=== PATIENT | female | born 1985 | race Caucasian/White ===

== ENCOUNTER → 2020-09-14 08:43 | Outpatient (CLI) | payer OTHER, MEDICAID, SELFPAY ==
[2020-09-12 11:32] VITALS: BMI 21.3
--- NOTE | 2020-09-14 08:46 | US_ITS ---
STUDY: ULTRASOUND BREAST - RIGHT REASON FOR EXAM: Female, 34 years old. Abnormal screening mammogram. TECHNIQUE: Axial and longitudinal images of the RIGHT breast were performed with a high resolution ultrasound transducer. # OF IMAGES: 22 COMPARISON: Comparison is made with prior mammogram done earlier today. FINDINGS: RIGHT Breast: The palpable abnormality corresponds to a 1.5 cm x 2 cm x 0.8 cm hypoechoic well-defined solid nodule at the 12 o''clock position of the breast at 6 cm from nipple. This most likely represents a fibroadenoma. Tissue diagnosis is recommended. US/Breast Limited Unilateral IMPRESSION: The palpable abnormality corresponds to a 1.5 cm x 2 cm x 0.8 cm well-defined hypoechoic solid nodule at the 12 o''clock position of the breast at 6 cm from the nipple. Biopsy recommended. ASSESSMENT CATEGORY: BIRADS Category 4: Suspicious - Biopsy Should Be Considered. A letter regarding these results will be sent to the patient by the facility within 30 days. Electronically Signed: Giorgi Campa MD at 10:34 EST , Service support ,
--- NOTE | 2020-09-14 08:46 | BI_ITS ---
MAMMOGRAPHY - BILATERAL DIAGNOSTIC REASON FOR EXAM: Female, 34 years old. 2 week history of right breast lump. PERTINENT HISTORY: Non-contributory. TECHNIQUE: Digital bilateral breast davy (3D mammographic acquisition) in the CC and MLO projections. 2-D mediolateral oblique (MLO) and craniocaudad (CC) views of both breasts were obtained. CAD: Full Field Digital Mammography with Computer Added Detection was performed. COMPARISON: None. Baseline examination. FINDINGS: Breast Composition: The breasts are extremely dense, which lowers the sensitivity of mammography. The palpable abnormality corresponds to a 1.7 cm x 1.5 cm well-defined nodule in the upper central portion of the right breast. There is also evidence of a 1.5 cm x 1.4 cm retroareolar nodule of the right breast. Correlation with ultrasound is recommended. No other significant abnormalities are identified. BI/DIAG MAMM W/CAD, BILAT IMPRESSION: Nodular densities in the right breast as described. Correlation with ultrasound is recommended. ASSESSMENT CATEGORY: BIRADS Category 0: Incomplete. Need additional imaging evaluation. A letter regarding these results will be sent to the patient by the facility within 30 days. Approximately 10% of breast cancers are not detected by mammography. A normal mammogram should not delay biopsy of a clinically suspicious abnormality. Electronically Signed: Giorgi Campa MD at 10:29 EST , Service support ,
== END ==
PROVIDERS: PCP Internal Medicine; Referring Provider Nurse Practitioner Women's Health; Visit Provider Nurse Practitioner Women's Health
DX: N63.10 Unspecified lump in the right breast, unspecified quadrant (principal)
CPT/HCPCS: 76642; 77062; 77066; G0279

== ENCOUNTER → 2020-09-18 15:26 | Outpatient (CLI) | payer OTHER, MEDICAID, SELFPAY ==
[2020-09-18 13:39] VITALS: BMI 20.9
--- NOTE | 2020-09-18 14:00 | BRBX_PTH ---
PATIENT: LOLITA CASTILLO [facility]: [facility] U#:[id number] AGE/SX: 39/F ROOM: RE09/18/[address]: Dr. Diana Brice MD : 1985 BED: DIS: SPEC #: [id number] RECD: 09/18/20 15:13 STATUS: KIA REQ #: [id number] JANA: 09/18/20 14:[address]: Diana Brice DEPT: SURGICAL PATHOLOGY RECD BY: Odette Saucedo ENTERED: 09/19/20 08:01 SP TYPE: BREAST BX OTHR DR: Dr. Akil Hanson MD Tissues: Breast, NOS Procedures: Surgery Specimen Level IV HEADER OPERATION: Right breast biopsy PRE-OP DIAGNOSIS: Right breast mass TISSUE SUBMITTED: Right breast tissue MICROSCOPIC DIAGNOSIS Right breast mass, core biopsy: Fibroadenoma. Negative for atypia or malignancy. See comment. NIKKY:josey 09/20/2020 COMMENT Correlation with clinical, radiologic findings and appropriate follow up are necessary. MICROSCOPIC DESCRIPTION Slides are reviewed. GROSS DESCRIPTION Received in fixative is one container labeled with the patient's name and designated right breast mass. The specimen consists of multiple irregular fragments of marin-yellow fibroadipose tissue that in aggregate measure 1.5 x 0.3 x 0.1 cm. The specimen is totally submitted in one cassette. / SJ:rg 09/19/20 TC:1 CPT: 93401
== END ==
PROVIDERS: PCP Internal Medicine; Visit Provider Surgery
DX: N63.10 Unspecified lump in the right breast, unspecified quadrant (principal)
CPT/HCPCS: 88305

== ENCOUNTER → 2020-10-02 16:19 | Outpatient (CLI) | payer OTHER, MEDICAID, SELFPAY ==
[2020-10-02 13:02] VITALS: BMI 21.3
[2020-10-06 13:38] LABS: HPV APTIMA, High Risk Negative (Negative)
== END ==
PROVIDERS: PCP Internal Medicine; Referring Provider Nurse Practitioner Women's Health; Visit Provider Nurse Practitioner Women's Health
DX: Z12.4 Encounter for screening for malignant neoplasm of cervix (principal)
CPT/HCPCS: 87624; 88175; G0145

== ENCOUNTER → 2022-06-21 | Outpatient (CLI) | payer OTHER, MEDICAID, SELFPAY ==
--- NOTE | 2022-06-21 18:05 | US_ITS ---
STUDY: ULTRASOUND OF THE FEMALE PELVIS - COMPLETE REASON FOR EXAM: Female, 36 years old. Pelvic pain. LMP: Status post ablation. No LMP. TECHNIQUE: Transabdominal and Transvaginal TECHNICAL QUALITY: Adequate. COMPARISON: None. FINDINGS: The uterus is anteverted and is in a midline position. The uterus measures 6.2 x 5.4 x 2.1 cm. Normal uterine cervix. The endometrium measures 7 mm in thickness, and is hyperechoic. There is no demonstrated endometrial mass. There is no demonstrated myometrial mass. I.U.D. - The patient does not have an I.U.D. The right ovary is visualized. The right ovary measures 3.1 x 2.5 x 1.9 cm. There is no right ovarian cyst or ovarian mass. There is no visualized right adnexal mass or complex lesion. There is normal arterial and increased venous vascularity with prominent venous structures in the broad ligament. The left ovary is visualized. The left ovary measures 2.6 x 1.5 x 1.7 cm. There is no left ovarian cyst or ovarian mass. There is no visualized left adnexal mass or complex lesion. There is normal arterial and increased venous vascularity with prominent venous structures in the broad ligament.. There is a moderate amount of fluid in the cul-de-sac. The pre void volume of the bladder was 59 ml. The urinary bladder appears grossly normal. Polycystic ovary disease: No. US/Pelvic (Non ) IMPRESSION: 1. Normal uterus. 2. Normal ovaries. 3. Moderate free fluid in the pelvis. 4. Question pelvic congestion. Electronically Signed: Tho Bagley DO at 20:53 EST ,
== END | disposition home or self-care (01) ==
LOC: US 18:05
PROVIDERS: PCP Internal Medicine; Visit Provider Obstetrics & Gynecology
DX: R10.2 Pelvic and perineal pain (principal)
CPT/HCPCS: 76830; 76856; 93976

== ENCOUNTER → 2023-01-04 | Outpatient (CLI) | payer OTHER, SELFPAY | END | disposition home or self-care (01) | LOC: LAB 09:02 | PROVIDERS: PCP Internal Medicine; Referring Provider Anesthesiology; Visit Provider Obstetrics & Gynecology | DX: Z01.818 Encounter for other preprocedural examination (principal) | CPT/HCPCS: 36415; 83735; 85027; 86850; 86900; 86901 ==

== ENCOUNTER 2023-01-14 09:56 | Day surgery (SDC) | payer OTHER, MEDICAID, SELFPAY ==
[2023-01-04 09:28] LABS: Hematocrit 39.5 % (37-47); Hemoglobin 13.5 g/dL (12.0-15.0); Mean Corp Hgb Conc 34.2 g/dL (32-36); Mean Corpuscular Hgb 29.8 pg (27.0-32.0); Mean Corpuscular Volume 87.2 fL (81-99); Mean Platelet Vol. 9.9 fl (6.2-12.0); Platelet Count 287 K/mm3 (150-450); RBC Distribution Width CV 11.8 % (11.6-14.6); RBC Distribution Width SD 37.8 fl (35.1-43.9); Red Blood Count 4.53 M/mm3 (4.2-5.4); White Blood Count 4.2 K/mm3 (4.4-11.0)
[2023-01-04 10:08] LABS: Magnesium 2.3 mg/dL (1.6-2.6)
[2023-01-14] VITALS (10 sets, daily range): BP systolic 105–127; BP diastolic 51–75; PULSE 51–84; RESP 16–17; TEMP 36.2–37.3; O2SAT 98–100; BMI 24.7
[2023-01-14 10:26] LABS: Internal QC Validated? YES +Cl - CLEAR BKGD; Pregnancy, Urine Negative Negative
[2023-01-14] MEDS: Lactated Ringers 1,000 ML 40 ML IV ×2 (10:28→17:12)
[2023-01-14] MEDS: Enoxaparin 40 MG/0.4 ML Syringe SC (10:28)
[2023-01-14] MEDS: Magnesium 1 GM over 15 mins IV (10:28)
[2023-01-14] MEDS: Phenazopyridine 95 MG Tablet 190 MG PO (10:29)
[2023-01-14] MEDS: Gabapentin 600 MG Tablet PO (10:30)
[2023-01-14] MEDS: Acetaminophen 500 MG Tablet 1000 MG PO ×2 (10:30→15:52)
[2023-01-14] MEDS: Celecoxib 200 MG Capsule 400 MG PO (10:30)
[2023-01-14] MEDS: dexAMETHasone 4 MG/ML Vial 8 MG IV (10:31)
[2023-01-14 11:07] LABS: Bedside Glucose 83 mg/dL (74-106)
--- NOTE | 2023-01-14 12:05 | HYST_PTH ---
PATIENT: LOLITA CASTILLO LOC: [facility] U#:[id number] AGE/SX: 37/F ROOM: RE01/14/[address]: Dr. Jessica Regan MD : 1985 BED: DIS: 01/14/2023 SPEC #: [id number] RECD: 01/14/23 15:08 STATUS: KIA HARRISON #: [id number] JANA: 01/14/23 12:[address]: Jessica Regan DEPT: SURGICAL PATHOLOGY RECD BY: Odette Saucedo ENTERED: 01/15/23 08:44 SP TYPE: HYSTERECT OTHR DR: Dr. Akil Hanson MD Tissues: Uterus, NOS Procedures: Surgery Specimen Level V HEADER OPERATION: ERAS, total vaginal hysterectomy, salpingectomy PRE-OP DIAGNOSIS: Chronic pelvic pain, pelvic congestion TISSUE SUBMITTED: Uterus, cervix, bilateral fallopian tubes MICROSCOPIC DIAGNOSIS Uterus, hysterectomy: Cervix - minimal chronic inflammation and focal nabothian cyst. Endometrium - extensive denudation consistent with previous therapeutic effect. Remnant minimal endometrium with no pathologic change. Myometrium - No pathologic change. Right and left fallopian tubes - No pathologic change. AM:josey 01/16/2023 MICROSCOPIC DESCRIPTION Slides are reviewed. GROSS DESCRIPTION Received in fixative is one container labeled with the patient's name and designated uterus, cervix, bilateral fallopian tubes. The specimen consists of a hysterectomy specimen consisting of uterus with cervix and detached bilateral fallopian tubes. The uterus with cervix weighs 53 gm and measures 7.0 x 4.5 x 3.0 cm. The serosal surface is marin, glistening. The ectocervical mucosa is unremarkable. The external os is oval and patulous in contour. The endocervical canal measures 2.5 cm in length and the endocervical mucosa is unremarkable. The endometrial cavity predominantly is obliterated and only the distal portion of the endometrial cavity could be identified measuring 1.0 cm in length and 0.5 cm in width. In the obliterated portion, the endometrium appears to be yellowish. Sections of the uterine wall do not reveal any mass lesion and measures up to 1.5 cm in thickness. The fallopian tubes are not identified as right or left and measures 4.0 cm in length and 0.7 cm in diameter and 3.0 cm in length and 0.5 cm in diameter. The fimbrial ends are identified. Sections reveal unremarkable cut surfaces. Interactive Web Developer sections are submitted in 12 cassettes as follows: 1 - anterior cervix, 2 - posterior cervix, 3-6 - anterior uterine wall, 7-10 - posterior uterine wall, entire endometrium is submitted, 11 - one fallopian tube, 12??second fallopian tube. / NIKKY:josey 01/15/2023 TC:5 CPT: 95134
--- NOTE | 2023-01-14 12:17 | HP.PCM_ITS ---
History and Physical MR#: [id number] Acct: [id number] Name:LOLITA KOHLER Rep #: [id number] : 1985 ? ? Provider: Dr. Jessica Regan MD Age/Sex:? 37/F ? ? [place] [facility] [place]: Signed Intake Vital Signs ? 12/24/2307:15 12/24/2307:16 Height 5 ft 6 in 5 ft 6 in Weight: 154 lb 4 oz ? BMI 24.9 ? BP 139/80 H ? Intake Visit Reasons:?TVHBS Home Planning Consultant Salesperson Required: No Is patient in pain?: No Allergies Penicillins Allergy (Verified 12/23/22 08:15) Hives Medications multivitamin 1 tab PO DAILY 09/12/20 [History Confirmed 07/18/22] cyclobenzaprine 10 mg tablet 10 mg PO TID PRN muscle spasm #30 tabs 06/21/22 [Rx Confirmed 07/18/22] PFSH Medical History? Benign schwannoma Dysfunctional autonomic nervous system Surgical History? History of appendectomy History of endometrial ablation History of oral surgery History of right breast biopsy S/P tonsillectomy and adenoidectomy Family History? Mother HypertensionFather HypertensionGrandfather HypertensionGrandmother Hypertension Diabetes Social History?(Updated 12/23/22 @ 08:16 by Naa Franklin) household members:? spouse and children number of children:? 5 current occupational status:? 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 No sexually active:? Yes Smoking Status:? Never smoker alcohol intake:? never substance use type:? does not use diet:? other what type of physical activity do you participate in:? other frequency:? daily duration:? 15-30 minutes/day seatbelt use:? always do you feel safe at home:? Yes additional social history:? - [facility] TVHBS Details: LOLITA CASTILLO is a 37 year old who presents for preop appointment she has chronic pelvic pain, post ablation suspect pelvic congestion post ablation pelvic pain syndrome, post 5 vaginal deliveries. Female Reproductive History Menopausal Symptoms: No night sweats History ? ? ? 6 ? Elective abortions ? Hx Para ? ? ? 5 ? Spontaneous abortions ? Hx # Term Pregnancies ? Ectopic pregnancies ? Hx # Pregnancies ? Multiple births ? # of living children ? ? ? 5 Past Pregnancies Del. Date Name GA/Weeks Outcome Route Bth Weight Infant Gen Labor Lgth Anesthesia Del Locatn Provider FOB Unknown Teresa? 2001 ? Unknown Rileigh? 2002 ? Unknown Mina? 2006 ? Unknown Brahm? 2007 ? Unknown Blossom? 2009 ? ROS Const Constitutional: Denies fatigue, fever(s), headache(s), increased appetite, poor appetite, night sweats, weight gain or weight loss ENT ENT: Reports system reviewed and no additional complaints, except as documented Cardio Card: Denies chest pain Resp Resp: Denies cough or dyspnea GI GI: Reports as per HPI; Denies constipation, nausea or vomiting : Reports as per HPI; Denies nipple discharge Musc Musc: Denies arthralgias, back pain or muscle weakness Skin Skin/Breast: Denies alopecia, change in hair, dry skin, breast mass, breast pain, breast skin changes or nipple discharge Neuro Neuro: Reports system reviewed and no additional complaints, except as documented Psych Psych: Reports system reviewed and no additional complaints, except as documen chely Endo Endo: Denies cold intolerance, excessive sweating, heat intolerance or polydipsia Rishi/Lymph Hematologic/Lymphatic: Denies easy bleeding, Denies easy bruising and Denies lymphadenopathy Exam Const General: cooperative, healthy appearing, comfortable, no acute distress and well developed Orientation: alert [facility] Head: normal to inspection and normocephalic Ears: hearing grossly normal bilaterally and external ears normal Nose: external nose normal and nares normal Face and sinus: normal facial exam Neck Neck: normal visual inspection, no lymphadenopathy and trachea midline Thyroid: thyroid normal Chest Chest palpation & inspection: normal inspection of the chest Resp Effort & Inspection: normal respiratory effort Auscultation: clear to auscultation bilaterally Cardio Rate: regular rate Rhythm: regular rhythm Heart Sounds: S1 normal and S2 normal GI Inspection: normal to inspection and non-distended Palpation: soft and no hepatosplenomegaly Musc Other: gross motor intact no deficits, full bilateral strength Skin General: no rashes or lesions noted Neuro General: patient alert, patient awake, moves all extremities and no focal motor deficits Motor: muscle tone normal throughout Extrem General: normal to inspection and no pedal edema Psych Appearance: grossly normal Mental Status: mental status grossly normal Affect: normal affect Speech and Movement: speech and movement normal Coding Level of Care Code No Charge Diagnoses Chronic pelvic pain in female? R10.2; G89.29 Pelvic congestion? N94.89 Assessment and Plan Assessment and Plan (1) Chronic pelvic pain in female: ?Status:?Chronic ?Comment: plan TVHBS.? suspect pelvic congestion/post ablation pelvic pain syndrome.? discussed hysterectomy if desired.? doxycycline ordered for possible chronic endometritis.? s/p US. (2) Pelvic congestion: ?Status:?Acute ?Comment: post ablation, seen on US.? no bleeding, as dyspareunia.? discussed hormonal vs surgical management, plan TVHBS. Plan After discussing the patient's diagnosis and treatment plan options, patient wishes to proceed with surgical management.? I have discussed with the patient the risks, benefits, and alternatives of the procedure which include but are not limited to risks of anesthesia, bleeding, infection, possible damage to bowel, bladder, or surrounding vasculature which could lead to additional surgery to evaluate any complications.? Patient agrees to procedure and wishes to proceed.? ACOG/uptodate references given for additional information regarding procedure.? UPDATE- I have seen the patient and performed any clinically relevant updates to the history and physical exam. Jessica Regan MD
[2023-01-14] MEDS: Cefazolin 2 GM in 0.9% Normal Saline 100 ML IV (12:27)
[2023-01-14] MEDS: Vasopressin 20 UNITS/ML Vial (12:50)
--- NOTE | 2023-01-14 14:59 | OP.PCM_ITS ---
Problems Associated Problem List Diagnoses (1) Uterine tenderness: (2) Chronic pelvic pain in female: (3) Pelvic congestion: Report of Operation Pre-Operative Diagnosis: see A/P Post-Operative Diagnosis: same Surgery/Procedure Performed:: TVH BS Surgeon: Jessica Regan cardiopulmonary technologist chief: None (trey wagner) Type of Anesthesia: General Specimen's removed: uterus, tubes Drains: malone Fluids Replaced: crystalloid Description of Procedure: Patient was taken to the operating room and was placed under general anesthesia was prepped and draped in normal sterile fashion in the dorsal lithotomy position. Preoperative antibiotics and SCDs and Malone catheter was placed inside the bladder. Weighted speculum was placed in the vagina and the anterior and posterior lip of the cervix was grasped with 2 Ricky clamps and circumferentially injected with dilute vasopressin. A circumferential incision was made with a scalpel and the posterior cul-de-sac was entered into sharply and a longneck speculum was placed. The anterior cul-de-sac was also dissected down and entered into sharply and the uterosacral ligaments were clamped cut and suture ligated bilaterally followed by the cardinal ligaments which were Clamped cut and suture ligated bilaterally with 0 Monocryl. The uterus serially descended and progressive bites were taken bilaterally up to the level of the utero-ovarian ligament bilaterally which was clamped transected and double ligated with 0 Monocryl suture and 0 Vicryl free tie. Bilateral fallopian tubes and ovaries were well visualized and noted be within normal limits and the bilateral fallopian tubes were transected across the base with a Jillian clamp and removed and sutured with 0 Vicryl suture. Excellent hemostasis was noted. [Posterior peritoneum was reapproximated with 2-0 Vicryl and a modified Medley stitch was placed through the posterior vaginal cuff and bilateral uterosacral ligaments across the posterior cul-de-sac skimming along to provide apical support to the vagina.] The vagina was closed with [id number] 0 Vicryl pop offs including the posterior and anterior peritoneum in the reapproximation. Excellent hemostasis was noted. All instruments removed from the vagina clear urine was noted at the end of the procedure and patient was awoken and taken recovery in stable condition. Grafts/Implants Used: none Complications none Admit VTE Documentation VTE Present on Admission: No VTE Mechan Device Prophylaxis: SCD's VTE Pharm Prophylaxis ordered?: Yes Multi Select Codes Urinary/Genital Urinary/Genital CPT Codes: 37715 TVH+BS/O <250gr uterus
[2023-01-14 15:48] LABS: Bedside Glucose 118 mg/dL (74-106)
[2023-01-14] MEDS: oxyCODONE 5 MG Tablet PO (15:52)
[2023-01-14 17:12] LABS: Hematocrit 36.8 % (37-47); Hemoglobin 12.4 g/dL (12.0-15.0); Mean Corp Hgb Conc 33.7 g/dL (32-36); Mean Corpuscular Hgb 29.5 pg (27.0-32.0); Mean Corpuscular Volume 87.4 fL (81-99); Mean Platelet Vol. 10.3 fl (6.2-12.0); Platelet Count 210 K/mm3 (150-450); RBC Distribution Width CV 11.8 % (11.6-14.6); RBC Distribution Width SD 37.5 fl (35.1-43.9); Red Blood Count 4.21 M/mm3 (4.2-5.4); White Blood Count 9.5 K/mm3 (4.4-11.0)
--- NOTE | 2023-01-14 17:24 | DCINST_ITS ---
Discharge Instructions Diet Discharge Diet: No restrictions Activity May resume sexual activity in: 6 weeks Weight Bearing Status: Full weight bearing Dressing / Incision Call your doctor if your incision/area has: Continuous Slow Oozing, Sudden Increased Bleeding, Increased Pain/ Swelling, Increased Redness and Foul Smelling Discharge Call your doctor if you observe: Fever of 101 or Higher, Using more than 1 pad per hour, Shortness of breath, Chest pain and Uncontrolled pain Suture Line Care: Avoid Pulling/Pushing and Avoid Pinching/Bending Follow Up Care Please Follow Up With: Jessica Regan MD When: Call to make an appointment with your doctor for a postop visit in 2 and 6 weeks. Test Results: Test results from this visit will be discussed in further detail at your follow- up appointment, if applicable. Discharge Plan Admission Attending Provider: Jessica Regan Primary Care Provider: Akil Hanson Discharge Orders/Prescriptions Prescriptions: New oxycodone-acetaminophen [Percocet] 5-325 mg tablet 1 tab PO Q6H PRN (Reason: pain) 7 Days Qty: 20 0RF naproxen [naproxen] 500 mg tablet 500 mg PO BID PRN PRN (Reason: Pain) Qty: 30 1RF No Action multivitamin Tablet 1 tab PO DAILY cyclobenzaprine 10 mg tablet 10 mg PO TID PRN (Reason: muscle spasm) Qty: 30 2RF Referrals / Follow Up: Akil Hanson MD [Primary Care Provider] - Disposition Disposition (needs filled in before D/C Order can be placed): Home, Self Care
== END 2023-01-14 18:22 | disposition home or self-care (01) ==
LOC: SDC 09:58 → AC 09:59
PROVIDERS: Anesthesiology; PCP Internal Medicine; Referring Provider Obstetrics & Gynecology; Visit Provider Obstetrics & Gynecology
PROC: (CPT 58260; principal; 2023-01-14 11:45)
DX: N88.8 Other specified noninflammatory disorders of cervix uteri (principal); R10.2 Pelvic and perineal pain; G89.29 Other chronic pain
CPT/HCPCS: 58262; 00944; 36415; 81025; 82962; 83735; 85027; 86850; 86900; 86901; 88307; J7120; J2405; J3475